=== PATIENT | female | born 2000 ===

== ENCOUNTER 2023-11-27 09:55 | Inpatient (IN) | payer OTHER ==
[~2023-11-27] VITALS: Ht 162.6 cm; Wt 80.3 kg
[2023-11-27] VITALS (47 sets, daily range): BP systolic 81–125; BP diastolic 40–103
[2023-11-27] MEDS ORDERED: Lactated Ringer's 1,000 ML IV SCH ×2 (11:50→12:15)
[2023-11-27] MEDS ORDERED: Morphine Sulfate 4 MG/1 ML Injection IV PRN (12:15)
[2023-11-27] MEDS ORDERED: Acetaminophen 325 MG TABLET PO PRN (12:15)
[2023-11-27] MEDS ORDERED: Naloxone HCl 0.4MG / ML 1ML Vial IV PRN (12:15)
[2023-11-27] MEDS ORDERED: LORazepam 2 MG/ML 1ML Injection IV ONE (12:15)
[2023-11-27] MEDS ORDERED: ALPRAZolam 0.5 MG Tab PO PRN (12:15)
[2023-11-27] MEDS ORDERED: Ondansetron HCl 2 MG / ML 2ML Vial IV PRN (12:20)
[2023-11-27] MEDS ORDERED: DiphenhydrAMINE HCL 25 MG Cap PO PRN (12:20)
[2023-11-27] MEDS ORDERED: Ampicillin Sod 2,000 MG in NS 100 ML IV ONE (12:25)
[2023-11-27] MEDS ORDERED: GENTAMICIN SULFATE IV ONE (12:50)
[2023-11-27] MEDS ORDERED: NS IV ONE (12:50)
[2023-11-27] MEDS ORDERED: Clindamycin 900mg in D5W 50ML 50 ML IV SCH (13:00)
[2023-11-27] MEDS ORDERED: Ketorolac Tromethamine 15mg Vial IV PRN (13:05)
[2023-11-27] MEDS ORDERED: NS 250 ML IV PRN (13:40)
[2023-11-27 13:47] LABS: Hemoglobin 7.8 g/dL (11.5-16.0); Mean Corpuscular HGB 29.8 pg (26.0-34.0); Mean Corpuscular HGB Conc 35.5 g/dL (31.5-36.5); Mean Corpuscular Volume 84 fL (80-100); Mean Platelet Volume 9.2 fL (9.1-12.4); Platelet Count 478 K/mm3 (150-400); RDW Coefficient Variation 13.5 % (11.7-14.2); Red Blood Cell Count 2.62 M/mm3 (3.80-5.20)
[2023-11-27 13:54] LABS: White Blood Cell Count 50.05 K/mm3 (4.00-11.30)
[2023-11-27 14:06] LABS: Albumin/Globulin Ratio 0.6 (0.8-1.8); Bilirubin, Total 0.8 mg/dL (0.1-1.0); Bun/Creatinine Ratio 8.1 (12.0-20.0); Calcium, Blood 7.7 mg/dL (8.5-10.1); Creatinine, Blood 0.62 mg/dL (0.40-1.00); Globulin, Blood 3.5 g/dL (2.2-4.0); Potassium, Blood 3.8 mmol/L (3.5-5.5); Total Protein, Blood 5.5 g/dL (6.4-8.2)
[2023-11-27 14:10] LABS: BAND PERCENT MAN 6 % (0-8); BASOPHILS PERCENT MAN 0 % (0-2); EOSINOPHILS PERCENT MAN 0 % (0-6); LYMPHOCYTES PERCENT MAN 3 % (21-46); MONOCYTES PERCENT MAN 1 % (4-13); NEUTROPHILS ABSOLUTE MAN 48.04 K/mm3 (1.96-9.15); SEG NEUTROPHILS PERCENT MAN 90 % (41-73); TOTAL CELLS COUNTED 100
[2023-11-27] MEDS ORDERED: NS 1,000 ML IV SCH (17:35)
[2023-11-27 17:58] LABS: Gentamicin, Peak 10.3 ug/mL (4.0-8.0)
[2023-11-27] MEDS ORDERED: Ampicillin Sod 2,000 MG in NS 100 ML IV SCH (18:00)
--- NOTE | 2023-11-27 18:19 | NUR ---
PT ARRIVAL/SHIFT SUMMARY.... PT WAS A DIRECT ADMIT FROM THE [facility]. PT IS A&Ox4. LEVOPHED AT 4MCG/MIN TO KEEP MAPS>65. SHE IS IN ST IN THE 130'S WHICH INCREASES TO THE 140'S WITH ACTIVITY/ANXIETY. PT HAS A SCANT AMOUNT OF BLEEDING AND HAS HAD 1 MED SIZED CLOT WITH URINATION. PT IS C/O OF 6/10 ABD PAIN AND HAS 0 PAIN TOLERANCE OR COPEING METHODS. PICC LINE WAS STARTED FOR LEVOPHED AND LAB DRAWS D/T THE PT'S REFUSAL OF FURTHER LAB DRAWS. PT REFUSED ABD/TRANSVAGINAL ULTRA SOUND THIS AFTERNOON PROVIDER IS AWARE. PT VOIDED ONCE THIS SHIFT 325MLS AND WAS ABLE TO GET TO THE BSC WITH SBA. PT WAS FEBRILE WITH TEMP 100.4. PT'S S/O AT THE BEDSIDE. CALL LIGHT IN REACH WILL CONTINUE TO MONITOR UNTIL REPORT IS GIVEN TO ONCOMING RN.
[2023-11-27] MEDS ORDERED: NS 1,000 ML IV ONE (18:40)
--- NOTE | 2023-11-27 20:48 | NUR ---
ASSUMPTION OPF CARE/ASSESSMENT: ASSUMED CARE OF PT AT 1900; BEDSIDE REPORT RECIEVED FROM CHETAN HARRIS. PT IS IN BED, A&O X 4, ANXIOUS AND COOPERATIVE WITH CARE. PT CURRENTLY ON RA, SPO2 95<, AND CLEAR LUNG SOUNDS T/O WITH DIM BASES; REPORTS SOME DYSPNEA WITH INHALATION THAT SHE FEELS IN HER SIDES. ST ON MONITOR WITH HR 120-130'S, SBP 100, MAP 65< AND DENIES CHEST PAIN/PRESSURE AT THIS TIME. HYPOACTIVE BOWEL TONES, TOLERATES PO INTAKE, REPORTS 7/10 LOWER ABD THAT IS DULL CRAMPING; PRN MEDS GIVEN PER EMAR. PT USES BEDSIDE COMMODE FOR ELIMINATION. JACKSON IN BED, S/O AT BEDSIDE TO HELP WITH ADL'S. PPP X 4, PG TO ELOINA THAT IS INFISNG LR @ 150 MLS/HR AND TKO. TEMP @ 100.1, TYLENOL PER EMAR. BED LOWERED, CALL LIGHT IN REACH.
[2023-11-27] MEDS ORDERED: Lactobacil 2-S.Thermo-Bifido 1 1 Cap PO SCH (21:00)
[2023-11-27 21:38] LABS: Source, Urine Clean Catch
[2023-11-27 22:02] LABS: Appearance, Urine Hazy (Clear); Bilirubin, Urine Neg (Neg); Blood, Urine 4+ (Neg); Color, Urine Amber (P-Yellow); Glucose Qualitative, Urine Neg (Neg); Ketones, Urine Neg (Neg); Leukocyte Esterase, Urine 2+ (Neg); Nitrite, Urine Neg (Neg); Protein, Urine 2+ (Neg); Urobilinogen, Urine NORM (Normal)
[2023-11-27 22:28] LABS: Amorphous Light (0-Heavy); Bacteria Many /hpf; Red Blood Cells, Urine 0-2 /hpf (0-2); Squamous Epithelial Cells Many /hpf (Few)
[2023-11-28] VITALS (39 sets, daily range): BP systolic 85–124; BP diastolic 51–87
[2023-11-28] MEDS ORDERED: Morphine Sulfate 10 MG/ML 1MLSYR IV PRN (02:45)
[2023-11-28 03:51] LABS: Hematocrit 20.9 % (33.0-51.0); Hemoglobin 7.3 g/dL (11.5-16.0); Mean Corpuscular HGB 29.6 pg (26.0-34.0); Mean Corpuscular HGB Conc 34.9 g/dL (31.5-36.5); Mean Corpuscular Volume 85 fL (80-100); Mean Platelet Volume 9.3 fL (9.1-12.4); Platelet Count 491 K/mm3 (150-400); RDW Coefficient Variation 13.8 % (11.7-14.2); RDW Standard Deviation 42.9 fL (35.1-46.3); Red Blood Cell Count 2.47 M/mm3 (3.80-5.20); White Blood Cell Count 46.92 K/mm3 (4.00-11.30)
[2023-11-28 04:10] LABS: Alanine Aminotransfer (ALT/SGP 21 U/L (12-78); Albumin, Blood 1.8 g/dL (3.4-5.0); Albumin/Globulin Ratio 0.5 (0.8-1.8); Alk Phos 90 U/L (50-136); Anion Gap 10 mmol/L (3-11); Aspartate Aminotrans (AST/SGOT 9 U/L (12-37); Bilirubin, Total 0.5 mg/dL (0.1-1.0); Blood Urea Nitrogen 5 mg/dL (8-24); Bun/Creatinine Ratio 7.9 (12.0-20.0); CO2, Blood 22 mmol/L (21-32); Calcium, Blood 7.4 mg/dL (8.5-10.1); Chloride, Blood 107 mmol/L (98-108); Creatinine, Blood 0.63 mg/dL (0.40-1.00); Gentamicin, Random 0.8 ug/Ml; Globulin, Blood 3.3 g/dL (2.2-4.0); Glomerular Filtration Rate 129 (60-); Glucose, Blood 128 mg/dL (70-99); Potassium, Blood 3.2 mmol/L (3.5-5.5); Sodium, Blood 136 mmol/L (136-145); Total Protein, Blood 5.1 g/dL (6.4-8.2)
[2023-11-28 04:11] LABS: BAND PERCENT MAN 4 % (0-8); BASOPHILS PERCENT MAN 0 % (0-2); EOSINOPHILS PERCENT MAN 0 % (0-6); LYMPHOCYTES ABSOLUTE MAN 1.87 K/mm3 (0.84-5.20); LYMPHOCYTES PERCENT MAN 4 % (21-46); MONOCYTES ABSOLUTE MAN 0.46 K/mm3 (0.16-1.47); MONOCYTES PERCENT MAN 1 % (4-13); NEUTROPHILS ABSOLUTE MAN 44.57 K/mm3 (1.96-9.15); SEG NEUTROPHILS PERCENT MAN 91 % (41-73); TOTAL CELLS COUNTED 100
[2023-11-28] MEDS ORDERED: Potassium Chl 20MEQ/Water100ML 100 ML IV ONE (04:55)
--- NOTE | 2023-11-28 06:07 | NUR ---
SHIFT SUMMARY: NO ACUTE CHANGES OVERNIGHT; VSS THROUGHOUT THE SHIFT. LEVO ON SB, LR @ 150 MLS/HR, AND PT RECIEVING KCL REPLACEMENT THIS MORNING. PT FEVER RESOLVED AFTER TYLENOL AND HAS BEEN AFEBRILE FOR THE REST OF THE SHIFT. PT UP TO VOID THREE TIMES THIS SHIFT WITH MINIMAL BLEEDING NOTED; AT LAST VOID NO BLOOD NOTED. PT AGREEABLE TO ULTRASOUND THIS SHIFT AND ABD US COMPLETED. PAIN MORE TOELRABLE THROUGHOUT THE SHIFT; ONE DOSE OF TYLENOL AND TORADOL WITH GOOD EFFECT AT THE START OF SHIFT. S/O AT BEDSIDE THROUGHOUT THE NIGHT, HELPING WITH ADL'S AND BEING APPROPRIATE. BED LOWERED, CALL LIGHT IN REACH.
[2023-11-28] MEDS ORDERED: Enoxaparin 40 MG/0.4 ML SYR SC SCH (09:00)
--- NOTE | 2023-11-28 09:08 | NUR ---
AM NOTE... ASSUMED CARE OF PT AT 0700. PT IS A&Ox4 AND IND IN THE ROOM WITH ADLs JUST NEEDS HELP WITH THE LINES. PT IS IN ST IN THE 120'S-130'S BP IS STABLE OFF LEVOPHED SINCE 0430 PER NOC SHIFT RN REPORT. PT'S MAP IS >65. PT HAS LR RUNNING AT 150MLS/HR. SHE IS ON RA WITH O2 SATS>90% L/S CLEAR T/O RR IS IN THE 20'S-30'S THIS INCREASES WITH HER ANXIETY. PLANS FOR A TRANSVAGINAL ULTRA SOUND TODAY. CALL LIGHT IN REACH WILL CONTINUE TO MONITOR.
[2023-11-28] MEDS ORDERED: NS IV ONE (14:00)
[2023-11-28] MEDS ORDERED: GENTAMICIN SULFATE IV ONE (14:00)
--- NOTE | 2023-11-28 17:56 | NUR ---
SHIFT SUMMARY.... PT HAS BEEN OFF OF LEVOPHED SINCE 043 THIS AM. PT CONTINUES TO BE IN SINUS TACH IN THE 120'S-130'S UP TO THE 140'S WITH ACTIVITY. PT'S TMAX THIS SHIFT WAS 101.0 PT WAS MEDICATED FOR RLQ PAIN PER EMAR WITH GOOD RESULTS. PT HAS BEEN UP TO THE TOILET TO VOID WITH MIN ASSIST FOR THE LINES. CALL LIGHT IN REACH WILL CONITNUE TO MONITOR UNTIL REPORT IS GIVEN TO ONCOMING RN.
[2023-11-28] MEDS ORDERED: Doxycycline Hyclate 100 MG in Dextrose 5% 250 ML IV SCH (18:00)
[2023-11-28] MEDS ORDERED: MetroNIDAZOLE 500 MG Tab PO SCH (21:30)
[2023-11-29] VITALS (20 sets, daily range): BP systolic 98–130; BP diastolic 57–103
[2023-11-29 03:03] LABS: BASOPHILS ABSOLUTE AUTO 0.07 K/mm3 (0.00-0.23); BASOPHILS PERCENT AUTO 0 % (0-2); EOSINOPHILS ABSOLUTE AUTO 0.04 K/mm3 (0.00-0.68); EOSINOPHILS PERCENT AUTO 0 % (0-6); Hematocrit 19.2 % (33.0-51.0); Hemoglobin 6.7 g/dL (11.5-16.0); IMMATURE GRAN PERCENT AUTO 1 % (0-1); LYMPHOCYTES PERCENT AUTO 6 % (21-46); MONOCYTES ABSOLUTE AUTO 1.24 K/mm3 (0.16-1.47); MONOCYTES PERCENT AUTO 4 % (4-13); Mean Corpuscular HGB 29.4 pg (26.0-34.0); Mean Corpuscular HGB Conc 34.9 g/dL (31.5-36.5); Mean Corpuscular Volume 84 fL (80-100); Mean Platelet Volume 9.4 fL (9.1-12.4); NEUTROPHILS ABSOLUTE AUTO 24.44 K/mm3 (1.96-9.15); NEUTROPHILS PERCENT AUTO 88 % (41-73); Platelet Count 415 K/mm3 (150-400); RDW Coefficient Variation 14.2 % (11.7-14.2); RDW Standard Deviation 43.8 fL (35.1-46.3); Red Blood Cell Count 2.28 M/mm3 (3.80-5.20); White Blood Cell Count 27.89 K/mm3 (4.00-11.30)
[2023-11-29 03:25] LABS: Albumin, Blood 1.6 g/dL (3.4-5.0); Albumin/Globulin Ratio 0.5 (0.8-1.8); Bilirubin, Total 0.3 mg/dL (0.1-1.0); Calcium, Blood 7.3 mg/dL (8.5-10.1); Creatinine, Blood 0.66 mg/dL (0.40-1.00); Globulin, Blood 3.1 g/dL (2.2-4.0); Magnesium, Blood 1.4 mg/dL (1.6-2.4); Phosphorus, Blood 2.2 mg/dL (2.5-4.9); Total Protein, Blood 4.7 g/dL (6.4-8.2)
[2023-11-29] MEDS ORDERED: Mag Sulfate 1 GM/D5% 100ML 100 ML IV STA (05:26)
[2023-11-29] MEDS ORDERED: Potassium Phosphate Dibasic 20 MM in Dextrose 5% 500 ML IV ONE (06:00)
--- NOTE | 2023-11-29 06:39 | NUR ---
SHIFT SUMMARY: NO ACUTE CHANGES OVERNIGHT; VSS THROUGHOUT THE SHIFT. PT REMAINS A&O X 4, COOPERATIVE WITH CARE AND ANXIOUS AT TIMES. DR QUIÑONES BY AT THE BEGINNING OF SHIFT TO DISCUSS VAGINAL US FINDINGS. PT CONTINUES TO HAVE MILD LOWER ABD PAIN THAT INCREASES WITH MOVEMENT; 5/10, MEDICATED WITH PRN MORPHINE AND HEATING PAD APPLIED TO MANAGE PAIN. PT RA, LUNGS CLEAR T/O AND DENIES SOB. ST ON MONITOR WITH HR 120, BP STABLE. PT HBG DOWN TO 6.7 THIS MORNING; ANAY AWARE AND ORDERS RECEIVED FOR 1 UN PRBC'S TO BE TRANSFUSED. STILL WAITING ON UNIT OF BLOOD TO ARRIVE. PT SHOWERED AT THE START OF SHIFT. MINIMAL ASSIST WITH ADL'S. SPOUSE AT BEDSIDE TO HELP PT WITH ALL ADL'S. PICC LINE TO ELOINA THAT HAS LR @ 150 MLS/HR. BED LOWERED, CALL LIGHT IN REACH. WILL REPORT OFF TO ONCOMING RN.
--- NOTE | 2023-11-29 07:00 | NUR ---
ASSUMPTION OF CARE PT RECEIVING LR 150ML/HR. SHE WAKENS EASILY TO VERBAL STIMULI. BLOOD PRODUCTS RECEIVED FROM LAB AND TRANSFUSION STARTED. BED IN LOW POSITION, CALL LIGHT WITHIN REACH.
[2023-11-29] MEDS ORDERED: NS 500 ML IV SCH (07:10)
[2023-11-29 11:04] LABS: Hematocrit 24.8 % (33.0-51.0); Hemoglobin 8.5 g/dL (11.5-16.0)
--- NOTE | 2023-11-29 11:50 | NUR ---
UPDATE PT REMAINS A&OX4. SHE IS ON RA. SHE IS IN SINUS TACH WITH RATE 110S-120S. BP STABLE. C/O R ABD PAIN AND BLOATING. MEDICATED PER EMAR WITH RELIEF. PT HAS VOIDED AND HAD A BM THIS SHIFT. PT HAS BEEN AMBULATING IN ROOM OR SITTING UP IN WHEELCHAIR. SIGNIFICANT OTHER AT BEDSIDE. PT CHANGED TO PCU STATUS.
[2023-11-29] MEDS ORDERED: NS IV SCH (14:00)
[2023-11-29] MEDS ORDERED: GENTAMICIN SULFATE IV SCH (14:00)
--- NOTE | 2023-11-29 17:31 | NUR ---
SHIFT SUMMARY PT IS A&OX4. SHE HAS BEEN INDEPENDENT IN HER ROOM WITH MINIMAL CORD ASSIST FROM HER SIGNIFICANT OTHER. SINUS TACH ON MONITOR WITH RATE IN 110S-120S. SHE CONTINUES TO C/O ABD BLOATING AND R SIDED ABD PAIN. MEDICATED PER EMAR WITH RELIEF. BED IN LOW POSITION, CALL LIGHT WITHIN REACH.
--- NOTE | 2023-11-29 20:57 | NUR ---
SPOKE WITH ON-CALL RESIDENT, DR. BEST REGARDING CONCERNS OF PATIENT BILATERAL LE SWELLING AND ADEQUATE PO INTAKE. IVF D/C PER
--- NOTE | 2023-11-29 22:53 | NUR ---
ASSUMED CARE PT TRANSFERED TO PCU FROM ICU APPROX 1919. PT A/O X4 AND IND IN ROOM. PT HAS MINIMAL BLE EDEMA AND STATES "I'VE NEVER SEEN MY LEGS THIS BIG, THEY FEEL SO TIGHT". SEE PREVIOUS NOTE FROM AIR VALUE TESTER REGARDING FLUIDS. HR ST 110-130'S. OTHER VSS. C/O OF 6/10 PAIN IN ABD AND THAT SHE FEELS ANXIOUS. MEDICATED PER EMAR. S/O AT BEDSIDE. CALL LIGHT IN REACH.
[2023-11-30 02:07] VITALS: BP 127/77
[2023-11-30 02:27] LABS: BASOPHILS ABSOLUTE AUTO 0.06 K/mm3 (0.00-0.23); BASOPHILS PERCENT AUTO 0 % (0-2); EOSINOPHILS ABSOLUTE AUTO 0.05 K/mm3 (0.00-0.68); EOSINOPHILS PERCENT AUTO 0 % (0-6); Hematocrit 24.1 % (33.0-51.0); Hemoglobin 8.5 g/dL (11.5-16.0); IMMATURE GRAN ABSOLUTE AUTO 0.37 K/mm3 (0.00-0.10); IMMATURE GRAN PERCENT AUTO 2 % (0-1); LYMPHOCYTES ABSOLUTE AUTO 2.18 K/mm3 (0.84-5.20); LYMPHOCYTES PERCENT AUTO 10 % (21-46); MONOCYTES ABSOLUTE AUTO 1.87 K/mm3 (0.16-1.47); MONOCYTES PERCENT AUTO 8 % (4-13); Mean Corpuscular HGB 29.4 pg (26.0-34.0); Mean Corpuscular HGB Conc 35.3 g/dL (31.5-36.5); Mean Corpuscular Volume 83 fL (80-100); Mean Platelet Volume 9.3 fL (9.1-12.4); NEUTROPHILS ABSOLUTE AUTO 17.85 K/mm3 (1.96-9.15); NEUTROPHILS PERCENT AUTO 80 % (41-73); Platelet Count 456 K/mm3 (150-400); RDW Coefficient Variation 14.3 % (11.7-14.2); Red Blood Cell Count 2.89 M/mm3 (3.80-5.20); White Blood Cell Count 22.38 K/mm3 (4.00-11.30)
[2023-11-30 02:47] LABS: Albumin, Blood 1.6 g/dL (3.4-5.0); Albumin/Globulin Ratio 0.5 (0.8-1.8); Bilirubin, Total 0.4 mg/dL (0.1-1.0); Bun/Creatinine Ratio 2.8 (12.0-20.0); Calcium, Blood 7.4 mg/dL (8.5-10.1); Creatinine, Blood 0.71 mg/dL (0.40-1.00); Globulin, Blood 3.3 g/dL (2.2-4.0); Magnesium, Blood 1.6 mg/dL (1.6-2.4); Phosphorus, Blood 2.5 mg/dL (2.5-4.9); Potassium, Blood 2.8 mmol/L (3.5-5.5); Total Protein, Blood 4.9 g/dL (6.4-8.2)
--- NOTE | 2023-11-30 05:51 | NUR ---
SHIFT SUMMARY NO ACUTE EVENTS T/O NIGHT. PT C/O OF PAIN AND MEDICATED TWICE THIS SHIFT. STATES TORADOL DOESN'T WORK AND MORPHINE WORKS BETTER. VSS, ST RATE 110-120'S. IND IN ROOM. CALL LIGHT IN REACH. WILL REPORT OFF TO ONCOMING RN.
[2023-11-30] MEDS ORDERED: Potassium Chloride 20 MEQ TabCR PO ONE ×2 (06:00→14:00)
[2023-11-30 07:29] VITALS: BP 115/73
[2023-11-30] MEDS ORDERED: HydrOXYzine Pamoate 25 MG Cap PO PRN (09:20)
[2023-11-30] MEDS ORDERED: Acetaminophen/Codeine 300-30 mg PO PRN (09:20)
[2023-11-30] MEDS ORDERED: Famotidine 20 MG Tab PO SCH (10:00)
[2023-11-30 11:35] VITALS: BP 111/46
--- NOTE | 2023-11-30 13:51 | NUR ---
AM NOTE: PATIENT ALERT AND ORIENTED. VERY SLEEPY. FLAT AFFECT. MOVING ALL EXTREMITIES AND UP TO BATHROOM IND. DENIES PAIN THIS AM. INTERMIT ABDOMINAL CRAMPING RELIEVED WITH HEATING PAD AND EMAR MEDICATIONS. DENIES NUMBNESS/TINGLING. ON ROOM AIR SATING ABOVE 95%. LUNGS SOUNDING CLEAR AND DIM IN BASES. DENIES SOB/COUGH. TELE SHOWING SINUS TACH WITH HR 100-120'S. DENIES CHEST PAIN/PRESSURE/PALPITATIONS. PPP. EDEMA NOTED TO BLE. PATIENT STATES SHE FEELS "PUFFY AND TIGHT". PICC LINE TO LEFT UPPER ARM, INTERMIT ABX INFUSIONS. BOWEL TONES PRESENT IN ALL 4 QUARDRANTS. 1 BOWEL MOVEMENT THIS AM AND VOIDING CLEAR/YELLOW URINE. DENIES ANY BLEEDING. POOR APPEATITE. DRINKING FLUIDS. PLAN FOR CT OF ABDOMIN AND PELVIS THIS AM. RED BLOTCHY SKIN ACROSS ABDOMIN. PATIENT STATES SHE BURNED HER ABDOMIN AT HOME BY LEAVING A HEATING PAD ON TOO LONG. NO OPEN WOUNDS. AT BEDSIDE. PATIENT UP TO CHAIR FOR LUNCH. AFTERNOON BLOOD DRAW COMPLETED AND LAB RESULTS PENDING. CALL LIGHT IN REACH. PATIENT DENIES NEEDS AT THIS TIME.
[2023-11-30 13:55] LABS: Gentamicin, Trough <0.2 ug/mL (0.0-1.9)
--- NOTE | 2023-11-30 14:00 | NUR ---
AFTERNOON POTASSIUM RESULTS CALLED INTO DR. GARZA. ORDERS FOR KCL 60 MEQ PO X1 NOW. ORDERS IN PLACE.
[2023-11-30 15:24] VITALS: BP 112/72
[2023-11-30] MEDS ORDERED: Heparin Sodium,Porcine 5,000 UNIT/0.5 ML SDV SC SCH (16:00)
--- NOTE | 2023-11-30 16:24 | NUR ---
PATIENT BACK FROM CT AT THIS TIME. IV ABX INFUSING. REMAINS AT BEDSIDE. VITAL SIGNS STABLE. SCD'S IN PLACE. PATIENT DENIES NEED FOR PAIN MEDICATION AT THIS TIME, USING HEATING PAD ON ABDOMIN.
--- NOTE | 2023-11-30 17:53 | NUR ---
PATIENT ANXIOUS ABOUT CT RESULTS AND VERY EMOTIONAL IN ROOM. THIS RN PLACED CALL TO DR. GARZA. PLAN FOR DR. GARZA TO COME TO BEDSIDE AND DISCUSS RESULTS WITH PATIENT. VITAL SIGNS REMAIN STABLE. IV ABX INFUSING. PATIENT WITH POOR APPEATITE, NOT EATING MUCH TODAY. DRINKING FLUIDS. VOIDING. REMAINS AT BEDSIDE. INTERMIT ABDOMINAL PAIN, PATIENT STATES IT IS MORE OF A DISCOMFORT THAN PAIN, DENYING NEED FOR PAIN MEDICATIONS. CALL LIGHT IN REACH.
--- NOTE | 2023-11-30 18:07 | NUR ---
DR. GARZA TO BEDSIDE TO DISCUSS CT RESULTS WITH PATIENT AND . ORDERS FOR METOPROLOL TARTRATE 12.5MG PO BID STARTING TONIGHT. ORDERS IN PLACE.
[2023-11-30 18:59] VITALS: BP 123/84
[2023-11-30] MEDS ORDERED: Metoprolol Tartrate 25 MG Tab PO SCH (21:00)
[2023-11-30 23:11] VITALS: BP 132/95
--- NOTE | 2023-12-01 05:24 | NUR ---
1915 Assumed care of pt, bedside report completed. Shift plan of care reviewed with pt, all questions answered. Pt with uneventful shift tonight, slept better than noc shift prior per report. Medicated for pain with Tylenol #3 1 tab PO x 1 this shift with good results. Given Vistaril PO x1 for self reported anxiety with good results. Pt up and ad calli in room to Br, maria elena well. K pad helpful for abd pain with swelling. LUE PICC, multiple IV ABX, given per order. Please see full assessment for additional details. No further complaints or concerns at this time, will continue to monitor.
[2023-12-01 06:10] LABS: BASOPHILS ABSOLUTE AUTO 0.07 K/mm3 (0.00-0.23); BASOPHILS PERCENT AUTO 0 % (0-2); EOSINOPHILS ABSOLUTE AUTO 0.03 K/mm3 (0.00-0.68); EOSINOPHILS PERCENT AUTO 0 % (0-6); Hematocrit 23.2 % (33.0-51.0); IMMATURE GRAN ABSOLUTE AUTO 0.44 K/mm3 (0.00-0.10); IMMATURE GRAN PERCENT AUTO 3 % (0-1); LYMPHOCYTES ABSOLUTE AUTO 2.24 K/mm3 (0.84-5.20); LYMPHOCYTES PERCENT AUTO 14 % (21-46); MONOCYTES ABSOLUTE AUTO 1.59 K/mm3 (0.16-1.47); MONOCYTES PERCENT AUTO 10 % (4-13); Mean Corpuscular HGB 29.3 pg (26.0-34.0); Mean Corpuscular HGB Conc 34.5 g/dL (31.5-36.5); Mean Corpuscular Volume 85 fL (80-100); NEUTROPHILS ABSOLUTE AUTO 11.94 K/mm3 (1.96-9.15); NEUTROPHILS PERCENT AUTO 73 % (41-73); Platelet Count 451 K/mm3 (150-400); RDW Coefficient Variation 14.5 % (11.7-14.2); RDW Standard Deviation 45.1 fL (35.1-46.3); Red Blood Cell Count 2.73 M/mm3 (3.80-5.20); White Blood Cell Count 16.31 K/mm3 (4.00-11.30)
[2023-12-01 07:08] LABS: Alanine Aminotransfer (ALT/SGP 11 U/L (12-78); Albumin, Blood 1.5 g/dL (3.4-5.0); Albumin/Globulin Ratio 0.4 (0.8-1.8); Alk Phos 63 U/L (50-136); Anion Gap 9 mmol/L (3-11); Aspartate Aminotrans (AST/SGOT 8 U/L (12-37); Bilirubin, Total 0.4 mg/dL (0.1-1.0); Blood Urea Nitrogen <1 mg/dL (8-24); Bun/Creatinine Ratio Unable to Calculate (12.0-20.0); CO2, Blood 24 mmol/L (21-32); Calcium, Blood 7.7 mg/dL (8.5-10.1); Chloride, Blood 111 mmol/L (98-108); Creatinine, Blood 0.68 mg/dL (0.40-1.00); Globulin, Blood 3.5 g/dL (2.2-4.0); Glomerular Filtration Rate 127 (60-); Glucose, Blood 101 mg/dL (70-99); Potassium, Blood 3.6 mmol/L (3.5-5.5); Sodium, Blood 140 mmol/L (136-145)
[2023-12-01 07:40] VITALS: BP 122/86
--- NOTE | 2023-12-01 11:28 | NUR ---
AM NOTE: PATIENT VERY SLEEPY THIS AM. ALERT AND ORIENTED. STATES PAIN IS IMPROVING. UP IND TO BATHROOM. VOIDING CLEAR/YELLOW URINE. ON ROOM AIR SATING ABOVE 95%. TELE SHOWING SR/ST. SBP 120'S. DENIES CHEST PAIN/PRESSURE/PALPITATIONS. PATIENT ALSO STATES SHE THINGS SWELLING IN LEGS IS IMPROVING. GENERALIZED EDEMA THROUGHOUT. CONTINUES TO HAVE POOR APPEATITE, DRINKING FLUIDS. REMAINS AT BEDSIDE. DR. GARZA TO BEDSIDE AND POSSIBLE DC TOMORROW. CALL LIGHT IN REACH. PATIENT DENIES NEEDS AT THIS TIME. IV ANTIBIOTICS INFUSING PER EMAR SCHEDULE.
[2023-12-01 12:39] VITALS: BP 130/89
[2023-12-01 15:46] VITALS: BP 119/84
--- NOTE | 2023-12-01 18:21 | NUR ---
SHIFT SUMMARY: NO ACUTE CHANGES. PATIENT VITAL SIGNS REMAIN STABLE. MEDICAL STATUS NO TELE. MEDICATED FOR PAIN X2 THIS SHIFT. PAIN RATED 4/10 AT [facility]. EDEMA CONTINUES TO IMPROVE. IV ABX INFUSED PER EMAR SCHEDULE. REMAINS AT BEDSIDE. CONTINUES ON ROOM AIR. SHOWER COMPLETED THIS SHIFT. CALL LIGHT IN REACH. DENIES NEEDS.
[2023-12-01 19:24] VITALS: BP 117/86
--- NOTE | 2023-12-01 20:51 | NUR ---
ASSUMPTION OF CARE AFTER RECEIVING REPORT FROM RADHA RN, THIS RN ASSUMED CARE AT APPROX 1915. PATIENT SLEEPING, EASILY AROUSABLE WITH VERBAL STIMULI. ALERT AND ORIENTED X4. PERRLA. MOVES ALL EXTREMITIES EQUALLY. INDEPENDENT IN ROOM. AT BEDSIDE ASSISTING WITH CARE PRN. REPORTS 4/10 LOWER ABD PAIN, DESCRIBED "DULL, CRAMPING." DENIES VAGINAL BLEEDING. ABD TENDER, FIRM. NORMOACTIVE BOWEL TONES. VSS. IS MEDICAL STATUS W/O TELEMETRY MONITORING. CALL LIGHT IN REACH. IV ABX INFUSING PER EMAR.
[2023-12-02 02:12] VITALS: BP 122/86
--- NOTE | 2023-12-02 05:09 | NUR ---
SHIFT SUMMARY NO ACUTE EVENTS SINCE ASSUMPTION OF CARE NOTE. PATIENT SLEPT T/O NIGHT, EASILY AROUSABLE WITH VERBAL STIMULI. CAN BE IRRITABLE AT TIMES, FREQUENTLY EXPRESSING DESIRE TO DC HOME TODAY. MANAGING LOWER ABD PAIN PER EMAR WITH IV TORADOL. VSS. REMAINS ON ROOM AIR, SATs >90%. RR EVEN, UNLABORED. INDEPENDENT IN ROOM. MULTIPLE UNMEASURED VOIDS T/O NIGHT - EDUCATION PROVIDED ON USE OF HAT TO MEASURE ACCURATE I/O. PATIENT CONTINUING TO NOT USE COLLECTION HAT. REMAINS AT BEDSIDE. CALL LIGHT IN REACH. WILL CONTINUE TO MONITOR AND REPORT TO ONCOMING RN.
[2023-12-02 07:15] VITALS: BP 122/83
--- NOTE | 2023-12-02 07:20 | NUR ---
AM NOTE: PATIENT ANGRY AND IRRITABLE WITH STAFF, ANXIOUS TO GO HOME. ALERT AND ORIENTED. DENIES NUMBNESS/TINGLING. PERRLA. IND TO BATHROOM AND IN ROOM. AT BEDSIDE. ON ROOM AIR SATING ABOVE 95%. LUNGS SOUNDING CLEAR. MEDICAL STATUS NO TELE. HR TRENDING 80'S THIS AM WITH SBP 120'S. DENIES CHEST PAIN/PRESSURE/PALPITATIONS. PPP. PICC LINE SALINE LOCKED AT THIS TIME. BLE AND GENERALIZED EDEMA IMPROVING. DENIES ABDOMINAL PAIN/NAUSEA AT THIS TIME. CONTINUES TO HAVE POOR APPEATITE. BOWEL TONES PRESENT IN ALL FOUR QUADRANTS. PATIENT CONTINUES TO VOID YELLOW URINE. NO SIGNS OF BLEEDING. INTERMIT RIGHT SIDED ABDOMINAL PAIN, DENIES PAIN AT THIS TIME. SEE SHIFT ASSESSMENT FOR OTHER DETAILS. CALL LIGHT IN REACH. DENIES NEEDS.
[2023-12-02 11:17] VITALS: BP 120/78
[2023-12-02] MEDS ORDERED: Acetaminophen650 M1 PO (12:27)
[2023-12-02] MEDS ORDERED: HYDHCL25 PO (12:29)
[2023-12-02] MEDS ORDERED: FAMO20 PO (12:29)
[2023-12-02] MEDS ORDERED: METO25 PO (12:30)
[2023-12-02] MEDS ORDERED: METR500 PO (12:31)
[2023-12-02] MEDS ORDERED: VISBIOME 112.51 EACH PO (12:32)
[2023-12-02] MEDS ORDERED: DOXY100 PO (12:32)
--- NOTE | 2023-12-02 12:57 | NUR ---
DISCHARGE: NO ACUTE CHANGES. THIS RN REVIEWED DISCHARGE INFORMATION AND EDUCATION WITH PATIENT AND . 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 PATIENT LEFT UNIT WITH ALL PERSONAL BELONGINGS VIA WHEELCHAIR.
--- NOTE | 2023-12-02 16:08 | NUR ---
PATIENT CALLED [facility] IN [place] DID NOT HAVE PRESCRIPTIONS, CALLED PRESCRIPTIONS INTO PHARMACY.
== END 2023-12-02 12:55 | disposition home or self-care (01) | DRG 779 ==
LOC: ICUE 09:55 → PCU 11-29 19:39
PROVIDERS: ADMIT Internal Medicine
PROC: 3E03329 Introduction of Other Anti-infective into Peripheral Vein, Percutaneous Approach (ICD-10-PCS; principal; 2023-11-27)
PROC: 3E033XZ Introduction of Vasopressor into Peripheral Vein, Percutaneous Approach (ICD-10-PCS; 2023-11-27)
PROC: 02HV33Z Insertion of Infusion Device into Superior Vena Cava, Percutaneous Approach (ICD-10-PCS; 2023-11-27)
DX: O03.87 Sepsis following complete or unspecified spontaneous abortion (principal); A41.9 Sepsis, unspecified organism; R65.21 Severe sepsis with septic shock; E87.21 Acute metabolic acidosis; D62 Acute posthemorrhagic anemia; F41.9 Anxiety disorder, unspecified; F32.A Depression, unspecified; N70.92 Oophoritis, unspecified; N83.8 Other noninflammatory disorders of ovary, fallopian tube and broad ligament
CPT/HCPCS: 36430; 36569; 74177; 76801; 76817; 80053; 80170; 81001; 82330; 83605; 83735; 84100; 84132; 84702; 85014; 85018; 85025; 86850; 86900; 86901; 86923; 87040; 87086; 94762; A9270; C1751; J0290; J1580; J1644; J1885; J2060; J2270; J3475; J3480; J7030; J7040; J7050; J7060; J7120; P9016; Q0177; Q9967